=== PATIENT | female | born 1990 | race Hispanic/Latino ===

== ENCOUNTER 2022-05-10 20:30 | Emergency (ER) | payer MEDICAID, SELFPAY ==
--- NOTE | ~2022-05-10 | XR_ITS ---
[XR ribs LT 2V w CXR 2V ] INDICATION: Lower chest wall pain TECHNIQUE: Frontal projection of the upper left ribs, frontal projection of the lower left ribs, obli que projection of all the left ribs, frontal inspiratory chest x-ray for interpretation. FINDINGS: There are no displaced rib fractures identified. There are no soft tissue abnormality see n. The lungs are clear. IMPRESSION: 1:No acute displaced rib fractures. Reviewed, dictated and finalized at location A. S ANALYST
[2022-05-10 20:33] VITALS: BP 147/85; PULSE 77; RESP 16; TEMP 36.2; O2SAT 98
[2022-05-10 21:52] LABS: Appearance Urine Clear (Clear); Bilirubin Urine 1+ (Negative); Blood Urine Negative (Negative); Color Urine Yellow (Yellow); Glucose Urine UA Negative (Negative); Ketones Urine 4+ mg/dL (Negative); Leukocyte Esterase Ur Negative LEU/UL (Negative); Nitrate Urine Negative (Negative); Protein Urine Negative (Negative); Specific Grav Ur 1.025 (1.001-1.035); Urobilinogen Urine 0.2 mg/dL (<2.0)
[2022-05-10 22:05] LABS: Mucus Urine Rare /lpf; RBC Urine 0-2 /hpf (0-2); Squamous Epithelial Cell Urine Few /hpf (Few); WBC Urine 0-3 /hpf
[2022-05-10 22:14] LABS: Add Urine Microscopic? YES
[2022-05-10 22:20] VITALS: BP 105/83; PULSE 70; RESP 16; TEMP 36.6; O2SAT 99
[2022-05-10 23:35] LABS: Basophils Absolute Auto 0.1 K/mm3 (0.0-0.1); Basophils Percent Auto 0.5 % (0.2-1.2); Eosinophils Percent Auto 0.4 % (0-4.4); Hematocrit 41.4 % (37.0-47.0); Hemoglobin 14.3 g/dL (12.0-15.0); Immature Granulocyte Absolute 0.04 K/mm3 (0.00-0.031); Immature Granulocyte Percent A 0.4 % (0-0.5); Lymphocytes Absolute Auto 2.95 K/mm3 (0.9-3.2); Mean Corpuscular HGB Conc 34.5 g/dl (32-36); Mean Corpuscular Hemoglobin 27.2 pg (26-34); Mean Corpuscular Volume 78.9 fl (80-100); Mean Platelet Volume 10.8 fl (7.4-10.4); Monocytes Absolute Auto 0.7 K/mm3 (0.1-0.6); Monocytes Percent Auto 6.4 % (2.6-8.5); Neutrophils Absolute Auto 6.8 K/mm3 (1.3-6.7); Neutrophils Percent Auto 64.3 % (45.5-73.1); Platelet Count Result 283 k/mm3 (150-375); Red Blood Count 5.25 M/mm3 (4.2-5.4); Red Cell Distribution Width 13.5 % (11.5-14.5); White Blood Count 10.5 K/mm3 (4.5-10.0)
[2022-05-10 23:58] LABS: Alanine Aminotransferase 18 U/L (6-35); Albumin Level 4.8 g/dL (3.5-5.1); Alkaline Phosphatase 67 U/L (38-126); Anion Gap 10 mmol/L (8-16); Aspartate Amino Transferase 25 U/L (14-36); Bilirubin,Total 1.2 mg/dL (0.2-1.3); Blood Urea Nitrogen 10 mg/dL (7-17); Calcium 9.3 mg/dL (8.4-10.2); Carbon Dioxide 24 mmol/L (22-30); Chloride 98 mmol/L (98-107); Estimated CRCL calculation 100 ml/min; Estimated Glomerular Filt Rate > 60; Glucose 81 mg/dL (65-110); Lipase 80 U/L (23-300); Potassium 3.7 mmol/L (3.4-5.0); Sodium 132 mmol/L (137-145)
[2022-05-11] MEDS: SODIUM CHLORIDE 0.9% IV 1,000 ML 999 ML IV CONT (00:01)
[2022-05-11] MEDS: MORPHINE SULFATE (*CRX) 4 MG/ML INJ IV PUSH (00:01)
[2022-05-11 00:53] VITALS: BP 116/63; PULSE 62; RESP 18; O2SAT 99
--- NOTE | 2022-05-11 02:38 | ED.GENADULT ---
HPI - General Adult General Chief complaint: Abdominal Pain Stated complaint: ABD Pain Time Seen by Provider: 05/10/22 23:24 History of Present Illness HPI narrative: Patient is a 32-year-old female who presents ER with a weeks worth of left-sided chest wall pain and potentially abdominal pain. Reports its been dull and aching. Worse with certain movements. It is made her slightly anxious and short of breath at times. She then developed some nausea and vomiting which made her feel a pop in her chest wall and increased her discomfort. Nausea and vomiting quelled at this time. No diarrhea. No history of kidney stone. No dysuria or urinary frequency. Patient has had some decreased oral intake due to the nausea and the discomfort in the upper abdomen/lower chest. Related Data Allergies Allergy/AdvReac Type Severity Reaction Status Date / Time No Known Allergies Allergy Verified 05/11/22 00:04 Review of Systems Review of Systems: All systems reviewed & are unremarkable except as noted in HPI and below Constitutional: Constitutional: Denies chills and Denies fever(s) Cardiovascular: Cardiovascular: Reports chest pain, Denies rapid heart rate and Denies radiating jaw, neck or arm pain Respiratory: Respiratory: Denies cough, Reports dyspnea and Denies wheezing Gastrointestinal: Gastrointestinal: Reports abdominal pain, Reports heartburn, Denies nausea and Denies vomiting PMFSH Past Medical History Medical History (Updated 05/11/22 @ 02:42 by Juan F Bhatt MD) Healthy female adult Surgical History Surgical History (Updated 05/11/22 @ 02:42 by Juan F Bhatt MD) No pertinent past surgical history Exam Narrative: GENERAL: Well-appearing, well-nourished, and in no acute distress. HEAD: Normocephalic, atraumatic. ENT: Mucous membranes moist. CHEST: Clear to auscultation. No respiratory distress. Tender palpation left anterior chest wall inferior to the breast. HEART: Regular rate and rhythm. Normal peripheral pulses. ABDOMEN: Soft, nontender, nondistended. EXTREMITIES: Normal range of motion. No edema. SKIN: Warm, dry, no rash. NEURO: Alert and oriented x3. PSYCH: Normal mood and affect. Course Course Emergency Course: Pain resolved with morphine. It was previously readily reproducible. Feels characteristic of muscle strain to the chest wall given no fracture. Patient was dry from not eating has been hydrated. PERC Rule for Pulmonary Embolism from [email or web address] on 05/10/2022 All calculations should be rechecked by clinician prior to use RESULT SUMMARY: 0 criteria No need for further workup, as <2% chance of PE. If no criteria are positive and clinician?s pre-test probability is <15%, PERC Rule criteria are satisfied. INPUTS: Age >=0 ?> 0 = No HR >=00 ?> 0 = No O? sat on room air ?> 0 = No Unilateral leg swelling ?> 0 = No Hemoptysis ?> 0 = No Recent surgery or trauma ?> 0 = No Prior PE or DVT ?> 0 = No Hormone use ?> 0 = No Vital Signs Vital signs: Vital Signs Temperature 97.2 F L 05/10/22 20:33 Pulse Rate 77 05/10/22 20:33 Respiratory Rate 16 05/10/22 20:33 Blood Pressure 147/85 H 05/10/22 20:33 Pulse Oximetry 98 05/10/22 20:33 Oxygen Delivery Room Air 05/10/22 20:33 Temperature 97.8 F 05/10/22 22:20 Pulse Rate 62 05/11/22 00:53 Respiratory Rate 18 05/11/22 00:53 Blood Pressure 116/63 05/11/22 00:53 Pulse Oximetry 99 05/11/22 00:53 Oxygen Delivery Room Air 05/10/22 20:33 Medical Decision Making Vital Signs Vital Signs: Vital Signs Temperature 97.2 F L 05/10/22 20:33 Pulse Rate 77 05/10/22 20:33 Respiratory Rate 16 05/10/22 20:33 Blood Pressure 147/85 H 05/10/22 20:33 Pulse Oximetry 98 05/10/22 20:33 Oxygen Delivery Room Air 05/10/22 20:33 Temperature 97.8 F 05/10/22 22:20 Pulse Rate 62 05/11/22 00:53 Respiratory Rate 18 05/11/22 00:53 Blood Pressure 116/63 05/11/22 00:53 Pulse Oxim
[2022-05-11 02:46] VITALS: BP 130/72; PULSE 78; RESP 18; O2SAT 99
== END 2022-05-11 02:48 | disposition home or self-care (01) ==
PROVIDERS: Physician Assistant; Emergency Provider Emergency Medicine; PCP Family Medicine
DX: R07.89 Other chest pain (principal)
CPT/HCPCS: 36415; 71046; 71100; 80053; 81001; 81025; 83690; 85025; 96361; 96374; 99284; J2270; J7030